=== PATIENT | male | born 1985 | race Caucasian/White ===

== ENCOUNTER 2023-08-01 08:25 | Emergency (ER) | payer OTHER ==
--- NOTE | 2023-08-01 09:10 | ED Physician Documentation ---
PD HPI URI - Stated complaint Stated Complaint: GARCIA,COUGH,SORE THROAT - Chief complaint Chief Complaint: Resp - History obtained from History obtained from: Patient - History of Present Illness Timing - onset: How many weeks ago (2-3 weeks from time originally ill with URI/viral type illness for few days, improved to perssistent cough and dyspnea. No change with OTC cough and cold meds. Now with right sinus pain and draiange.) Timing duration: Weeks Timing details: Gradual onset, Still present Associated symptoms: Ear pain (right), Sinus pain, Sore throat, Swollen nodes. No: Fever Contributing factors: No: Sick contact Similar symptoms before: Has not had sx before Review of Systems Constitutional: reports: Myalgias Nose: reports: Sinus pressure / pain (right maxillary area) Throat: reports: Sore throat Respiratory: denies: Dyspnea, Cough Neurologic: denies: Near syncope, Confused, Altered mental status PD PAST MEDICAL HISTORY - Past Medical History Past Medical History: No - Past Surgical History Past Surgical History: Yes - Present Medications Home Medications: Ambulatory Orders Medication Instructions Recorded Confirmed Albuterol Sulf [Ventolin Hfa 2 - 3 puffs INH QID 10 Days #1 each 08/01/23 Inhaler] Amox/Clav 875/125 [Augmentin] 1 each PO Q12H #10 tablet 08/01/23 Cetirizine [ZyrTEC] 10 mg PO BID #15 tablet 08/01/23 HYDROcod/ACETAM 5/325 [[place] 5/325] 1 ea PO Q6H PRN #12 tablet 08/01/23 dexAMETHasone [Decadron] 4 mg PO DAILY #5 tablet 08/01/23 lamoTRIgine [LaMICtal] 25 mg PO DAILY 08/01/23 08/01/23 - Allergies Allergies/Adverse Reactions: Allergies Allergy/AdvReac Type Severity Reaction Status Date / Time No Known Drug Allergies Allergy Verified 08/01/23 08:43 - Social History Does the pt smoke?: No Smoking Status: Never smoker PD ED PE NORMAL - Vitals Vital signs reviewed: Yes - General General: Alert and oriented X 3, No acute distress, Well developed/nourished - HEENT HEENT: Ears normal, Pharynx benign - Neck Neck: Supple, no meningeal sign, No adenopathy - Cardiac Cardiac: RRR, No murmur - Respiratory Respiratory: Clear bilaterally - Abdomen Abdomen: Normal bowel sounds, Non tender - Derm Derm: Normal color, Warm and dry, No rash Results - Vitals Vitals: Vital Signs - 24 hr 08/01/23 08/01/23 08:40 09:48 Temperature 36.8 C Heart Rate 95 92 Respiratory 16 18 Rate Blood Pressure 156/88 H 154/84 H O2 Saturation 97 96 Oxygen O2 Source Room air - Labs Labs: Laboratory Tests 08/01/23 08:47 Nasal Adenovirus (PCR) NOT DETECTED Nasal B. parapertussis DNA (PCR) NOT DETECTED Nasal Coronavir 229E PCR NOT DETECTED Nasal Coronavir HKU1 PCR NOT DETECTED Nasal Coronavir NL63 PCR NOT DETECTED Nasal Coronavir OC43 PCR NOT DETECTED Nasal Enterovir/Rhinovir PCR NOT DETECTED Nasal Influenza B PCR NOT DETECTED Nasal Influenza A PCR NOT DETECTED Nasal Parainfluen 1 PCR NOT DETECTED Nasal Parainfluen 2 PCR NOT DETECTED Nasal Parainfluen 3 PCR NOT DETECTED Nasal Parainfluen 4 PCR NOT DETECTED Nasal RSV (PCR) NOT DETECTED Nasal B.pertussis DNA PCR NOT DETECTED Nasal C.pneumoniae (PCR) NOT DETECTED Jaren Human Metapneumo PCR NOT DETECTED Nasal M.pneumoniae (PCR) NOT DETECTED Nasal SARS-CoV-2 (PCR) NOT DETECTED - Rads (name of study) chest xray Relevant Findings:: Prelim report reviewed, EMP independent interpretation of test (no acute abnormality) PD Medical Decision Making - ED course Complexity details: considered differential (had URI symptoms for 3-4 days initially, then to cough that was persistent and bothersome. Now with sinus right sided pain and purulent /bloody nasal discahrge right side. Seems likely viral URI, with bronchail irritation and now secondary sinusitis. ), d/w patient Departure - Departure Disposition: 01 Home, Self Care Clinical Impression: Acute sinusitis, Persistent cough, URI (upper respiratory infection) Condition: Stable Record reviewed to determine appropriate education?: Yes Follow-Up: JAREN Aguila [Provider Group] Prescriptions: Amox/Clav 875/125 [Augmentin] 1 each PO Q12H #10 tablet dexAMETHasone [Decadron] 4 mg PO DAILY #5 tablet HYDROcod/ACETAM 5/325 [[place] 5/325] 1 ea PO Q6H PRN #12 tablet PRN Reason: Pain Albuterol Sulf [Ventolin Hfa Inhaler] 2 - 3 puffs INH QID 10 Days #1 each Cetirizine [ZyrTEC] 10 mg PO BID #15 tablet Comments: Your chest x-ray is clear without any signs of pneumonia. Your respiratory viral panel has not resulted yet. It certainly possible and likely that you had a viral illness at the initiation of this and are having persistent cough from just bronchial irritation. The new symptoms sound likely to be an acute sinus infection on top of the underlying inflammation/congestion. I would treat your sinus symptoms with a combination of Augmentin twice daily for 5 days as well as cetirizine antihistamine twice daily for the next week. Decadron steroid anti-inflammatory will be helpful for both the sinuses and the bronchioles. Also add albuterol inhaler 2 to 3 puffs 3-4 times daily to help with cough and wheezing/trouble breathing. Add Tylenol every 4-6 hours if needed for pains or hydrocodone/acetaminophen if needed for worse pains. This would be needed just short-term until the conditions are improving over the next few days. I sent your prescriptions to your preferred pharmacy here at [facility] in [place]. Off work today due to illness. I am prescribing a short course of narcotic pain medication for you. These are potentially dangerous and addictive medications that should be used carefully. These medications may constipate you. Take an [id number] stool softener such as docusate twice daily with plenty of water while taking these medications. If you go 24 hours without a bowel movement, take [id number] MiraLAX, per package instructions. Do not drink or drive while taking these medications. If you received narcotic or sedating medications while in the emergency department do not drive for 24 hours. Store this medication in a safe, secure place and out of reach of children. It is a violation of federal law to give or sell this medication to another person or to use in a manner other than prescribed. The ED will not refill narcotic prescriptions, including prescriptions lost or stolen. You can dispose of unwanted medications at the [facility] office or at several pharmacies such as [facility]. Forms: PCP List, Activity restrictions Discharge Date/Time: 08/01/23 09:49
[2023-08-01] MEDS: AMOX/CLAV 875 MG/125 MG TABLET PO STA (09:37)
[2023-08-01] MEDS: dexAMETHasone 4 MG TABLET PO STA (09:37)
[2023-08-01] MEDS: ACETAMINOPHEN 500 MG TABLET PO STA (09:37)
[2023-08-01 09:41] LABS: B. PARAPERTUSSIS- RESP PCR PAN NOT DETECTED; B. PERTUSSIS- RESP PCR PANEL NOT DETECTED; C. PNEUMONIAE- RESP PCR PANEL NOT DETECTED; CORONAVIRUS 229E-RESP PCR NOT DETECTED; CORONAVIRUS HKU1-RESP PCR NOT DETECTED; CORONAVIRUS NL63-RESP PCR NOT DETECTED; CORONAVIRUS OC43-RESP PCR NOT DETECTED; HUMAN METAPNEUMOVIRUS NOT DETECTED; INFLUENZA A- RESP PCR PANEL NOT DETECTED; INFLUENZA B - RESP PCR PANEL NOT DETECTED; M. PNEUMONIAE- RESP PCR PANEL NOT DETECTED; PARAINFLUENZA VIRUS 1 NOT DETECTED; PARAINFLUENZA VIRUS 2 NOT DETECTED; PARAINFLUENZA VIRUS 3 NOT DETECTED; PARAINFLUENZA VIRUS 4 NOT DETECTED; RHINOVIRUS/ENTEROVIRUS NOT DETECTED; RSV- RESP PCR PANEL NOT DETECTED; SARS-CoV-2 -RESP PCR PANEL NOT DETECTED
--- NOTE | 2023-08-01 09:46 | XRAY Report ---
PROCEDURE: Chest 2V INDICATIONS: Cough TECHNIQUE: 2 views of the chest were acquired. COMPARISON: None. FINDINGS: Surgical changes and devices: None. Lungs and pleura: No dense consolidation or pleural effusions Low lung volumes. Mediastinum: Normal heart size Bones and chest wall: Degenerative changes. IMPRESSION: No acute radiographic abnormality. Reviewed by: Jesse Gonzalez MD on 08/01/2023 9:45 AM [facility] Approved by: Jesse Gonzalez MD on 08/01/2023 9:45 AM [facility] Station ID: [id number]
[2023-08-01 09:49] VITALS: BP 154/84; O2SAT 96
== END 2023-08-01 09:49 | disposition home or self-care (01) ==
LOC: ED 08:25
DX: J01.90 Acute sinusitis, unspecified (principal); J06.9 Acute upper respiratory infection, unspecified; R05.3 Chronic cough; Z79.899 Other long term (current) drug therapy
CPT/HCPCS: 71046; 87633; 99284; A9270; J8540